=== PATIENT | female | born 1975 | race Caucasian/White ===

== ENCOUNTER 2017-02-24 08:19 | Emergency (ER) | payer SELFPAY ==
[~2017-02-24 08:19] MED LIST: METH4TAB2 PO
[2017-02-24] MEDS ORDERED: BENZONATATE 100 MG CAPSULE. PO ONE (09:00)
[2017-02-24] MEDS ORDERED: KETOROLAC TROMETHAMINE 60 MG/2 ML SYRINGE. IM ONE (09:00)
--- NOTE | 2017-02-24 09:18 | EKG ---
[facility] [address] [place] [address] Test Date: 2017-02-24 Test Time: 08:57:53 Pat Name: ASIM ANTONIO Department: Room: Gender: F Privacy Manager: : 1975 Requested By: YANG RODRÍGUEZ Order Number: [id number] Reading MD: Jenna Gardner Measurements Intervals [place] Rate: 70 P: 31 ME: 122 QRS: 11 QRSD: 78 T: 17 QT: 400 QTc: 435 Interpretive Statements SINUS RHYTHM NORMAL ECG RI6.01 Compared to ECG 08/08/2016 10:33:57 No significant changes Electronically Signed On 02-26-2017 18:51:31 CDT by Jenna Gardner
--- NOTE | 2017-02-24 09:19 | PHYS DOC ---
Past Medical History Past Medical History: Anxiety, Arthritis, Diabetes-Type II, Migraines Past Surgical History: Appendectomy, Tubal ligation Alcohol Use: None Drug Use: None Adult General Chief Complaint Chief Complaint: COUGH HPI HPI Patient is a 41 year old female who presents with cough & chest pain. Patient reports 1 week history of dry cough, with 2 day history of sharp left sided chest pain. Reports pain worse with deep breathing & coughing. She denies fevers/chills, rhinorrhea, sore throat, shortness of breath, abdominal pain, vomiting, diarrhea. She has diabetes, denies cardiac or pulmonary disease. She denies use of tobacco. Denies use of control, no recent immobilization, travel, or surgery. PCP at [facility]. Review of Systems Review of Systems Constitutional: Denies fever or chills Eyes: Denies change in visual acuity HENT: Reports nasal congestion and sore throat Respiratory: Reports cough, denies shortness of breath Cardiovascular: Reports chest pain, denies edema GI: Denies abdominal pain, nausea, vomiting, or diarrhea : Denies dysuria Musculoskeletal: Denies back pain or joint pain Integument: Denies rash or skin lesions Neurologic: Denies headache, Current Medications Current Medications Current Medications Medications (Trade) Dose Ordered Sig/Acacia Start Time Stop Time Status Last Admin Dose Admin Benzonatate (Tessalon Perle) 100 mg 1X ONCE 02/24/17 09:00 02/24/17 09:01 DC 02/24/17 09:05 100 MG Ketorolac Tromethamine (Toradol Im) 60 mg 1X ONCE 02/24/17 09:00 02/24/17 09:01 DC 02/24/17 09:05 60 MG Allergies Allergies Allergies Coded Allergies Type Severity Reaction Last Updated Verified No Known Drug Allergies 08/08/16 No Physical Exam Physical Exam Constitutional: Obese, no acute distress, non-toxic appearance. HENT: Normocephalic, atraumatic, bilateral external ears normal, oropharynx moist, no tonsillar enlargement or exudate, nose normal. Eyes: conjunctiva normal, no discharge. Neck: supple, no stridor. Cardiovascular: RRR, no murmurs, no edema. Lungs & Thorax: LCTAB, no wheezing, no respiratory distress. Reproducible tenderness with palpation of her left anterior chest wall. Abdomen: soft, nontender, nondistended. Skin: Warm, dry, no erythema, no rash. Back: No tenderness. Extremities: No tenderness, no edema. No calf tenderness or swelling Neurologic: Alert and oriented X 3, no focal deficits noted. Psychologic: Affect normal, judgement normal, mood normal. Current Patient Data Vital Signs Vital Signs Date Time Temp Pulse Resp B/P Pulse Ox O2 Delivery O2 Flow Rate FiO2 02/24/17 08:30 98.3 82 14 111/72 94 Room Air 98.3 Lab Values Laboratory Tests Test 02/24/17 08:21 02/24/17 09:13 02/24/17 09:15 POC Urine HCG, Qualitative Hcg negative (Negative) POC Troponin I 0.00ng/ml (<0.08) POC Hemoglobin 11.6g/dL (12-15) L POC Hematocrit 34% (36-40) L POC Sodium 139mmol/L (135-145) POC Potassium 4.2mmol/L (3.5-5.0) POC Chloride 103mmol/L (98-110) POC Total CO2 26mmol/L (23-32) Anion Gap 16mmol/L (6-14) H POC Blood Urea Nitrogen 11mg/dL (8-26) POC Creatinine 0.7mg/dL (0.5-1.4) Glucose Level 95mg/dL (70-99) POC Ionized Calcium (Kaitlin) 1.19mmol/L (1.13-1.32) Laboratory Tests 02/24/17 09:15 EKG EKG Interpreted by me: Normal sinus rhythm rate 70, no acute ST or T wave changes, normal intervals, no ectopy. [] Radiology/Procedures Radiology/Procedures PROCEDURE: CHEST PA & LATERAL Chest, 2 views, 02/24/2017: History: Chest pain and cough The heart size and pulmonary vascularity are normal. No pulmonary infiltrates are seen. There is no evidence of pleural fluid. IMPRESSION: No acute cardiopulmonary abnormality is detected. DICTATED and SIGNED BY: JULIO C WATKINS MD DATE: 02/24/17924[] Course & Med Decision Making Course & Med Decision Making Pertinent Labs and Imaging studies reviewed. (See chart for details) Patient presents with cough and chest pain. Pain atypical for ACS, PERC score is 0. Gave Tessalon Perles and Toradol. Patient felt better. Recommend supportive care for likely viral illness with associated musculoskeletal pain. Recommend rest, by mouth hydration, Tylenol or ibuprofen for pain or fever, Tessalon Perles for cough. Follow-up with primary care at [facility] in 2-3 days if not improving. Return to the emergency department for severe shortness of breath or chest pain, or any otherwise worsening condition. Discharged home in stable condition. [] Dragon Disclaimer Dragon Disclaimer This electronic medical record was generated, in whole or in part, using a voice recognition dictation system. Departure Departure Impression: Primary Impression: Upper respiratory infection Disposition: HOME, SELF-CARE Condition: STABLE Referrals: UNKNOWN PCP NAME (PCP) Patient Instructions: Upper Respiratory Infection, Adult, [id number] Additional Instructions: You were seen in the emergency department today for cough and chest pain. Tests here did not show a serious cause of symptoms. This is likely caused by a virus which will get better on its own. Please rest, drink fluids to stay hydrated, take Tylenol or ibuprofen for pain or fever, use Tessalon Perles as needed for cough. Follow-up with primary care physician in 2-3 days if not improving. Return to the emergency department for severe shortness of breath or chest pain , any otherwise worsening condition. Scripts Benzonatate (Tessalon Perle)100 Mg [id number] Mg PO TID PRN COUGH #10 CAP Prov:YANG RODRÍGUEZ MD 02/24/17 YANG RODRÍGUEZ MD Feb 24, 2017 09:19
[2017-02-24 09:20] LABS: POTASSIUM ISTAT 4.2 mmol/L (3.5-5.0)
--- NOTE | 2017-02-24 09:29 | RAD ---
Chest, 2 views, 02/24/2017: History: Chest pain and cough The heart size and pulmonary vascularity are normal. No pulmonary infiltrates are seen. There is no evidence of pleural fluid. IMPRESSION: No acute cardiopulmonary abnormality is detected.
[2017-02-24] MEDS ORDERED: BENZ100C PO (09:36)
[2017-02-24 09:51] VITALS: BP 112/68
== END 2017-02-24 09:45 | disposition home or self-care (01) ==
LOC: ER 08:19
DX: J06.9 Acute upper respiratory infection, unspecified (principal); M79.1 Myalgia; F41.9 Anxiety disorder, unspecified; E11.9 Type 2 diabetes mellitus without complications; M19.90 Unspecified osteoarthritis, unspecified site; G43.909 Migraine, unspecified, not intractable, without status migrainosus
CPT/HCPCS: 71020; 80047; 81025; 84484; 93005; 96372; 99284; J1885

== ENCOUNTER 2017-12-13 08:33 | Emergency (ER) | payer SELFPAY | END 2017-12-13 08:54 | disposition home or self-care (01) | LOC: ER 08:33 | DX: T19.2XXA Foreign body in vulva and vagina, initial encounter (principal); F41.9 Anxiety disorder, unspecified; E11.9 Type 2 diabetes mellitus without complications; M19.90 Unspecified osteoarthritis, unspecified site; G43.909 Migraine, unspecified, not intractable, without status migrainosus; Z90.49 Acquired absence of other specified parts of digestive tract; Z98.51 Tubal ligation status; X58.XXXA Exposure to other specified factors, initial encounter; Y93.89 Activity, other specified; Y92.89 Other specified places as the place of occurrence of the external cause; Y99.8 Other external cause status | CPT/HCPCS: 99284 ==

== ENCOUNTER 2018-02-04 10:58 | Emergency (ER) | payer SELFPAY ==
[2018-02-04] MEDS: NAPROXEN 500 MG TABLET PO (11:51)
[2018-02-04] MEDS: CYCLOBENZAPRINE 10 MG TABLET. PO (11:51)
[2018-02-04] MEDS: HYDROcodone/APAP 5/325MG 1 TAB TABLET PO (11:51)
== END 2018-02-04 13:02 | disposition home or self-care (01) ==
LOC: ER 10:58
DX: S93.402A Sprain of unspecified ligament of left ankle, initial encounter (principal); S93.602A Unspecified sprain of left foot, initial encounter; S40.011A Contusion of right shoulder, initial encounter; F41.9 Anxiety disorder, unspecified; E11.9 Type 2 diabetes mellitus without complications; M19.90 Unspecified osteoarthritis, unspecified site; G43.909 Migraine, unspecified, not intractable, without status migrainosus; Z90.49 Acquired absence of other specified parts of digestive tract; Z98.51 Tubal ligation status; W01.0XXA Fall on same level from slipping, tripping and stumbling without subsequent striking against object, initial encounter; Y93.89 Activity, other specified; Y92.89 Other specified places as the place of occurrence of the external cause; Y99.8 Other external cause status
CPT/HCPCS: 73030; 73610; 73630; 99284